=== PATIENT | female | born 1965 | race Caucasian/White ===

== ENCOUNTER 2023-03-03 10:32 | Emergency (ER) | payer SELFPAY ==
[~2023-03-03] VITALS: Ht 165.1 cm; Wt 65.0 kg
[2023-03-03] MEDS ORDERED: KETOROLAC 60MG/2ML VIAL IM STA (12:04)
[2023-03-03 12:42] LABS: BASOPHILS % 0.6 % (0.0-2.0); EOSINOPHILS % 1.8 % (0.0-5.0); HEMATOCRIT. 37.2 % (36.0-48.0); HEMOGLOBIN. 12.2 g/dL (12.0-16.0); LYMPHOCYTES % 33.2 % (20.0-50.0); MEAN CORPUSCULAR HEMOGLOBIN 27.1 pg (28.0-32.0); MEAN CORPUSCULAR VOLUME 82.8 fL (81.0-99.0); MEAN PLATELET VOLUME 8.4 fl (7.4-10.4); MONOCYTES % 4.8 % (2.0-8.0); NEUTROPHILS % 59.6 % (40.0-76.0); PLATELET 347 x1000/uL (130-400); RED BLOOD CELL COUNT 4.49 mill/uL (4.2-5.4); RED CELL DISTRIBUTION WIDTH 14.2 % (11.6-14.6)
[2023-03-03 12:53] LABS: CHLORIDE 108 mEq/L (98-107)
[2023-03-03 13:37] LABS: CLARITY URINE CLEAR (CLEAR); COLOR URINE YELLOW (YELLOW); KETONES URINE NEGATIVE (NEGATIVE); LEUKOCYTE ESTERASE URINE NEGATIVE (NEGATIVE); NITRITE URINE NEGATIVE (NEGATIVE); OCCULT BLOOD URINE NEGATIVE (NEGATIVE); PROTEIN URINE NEGATIVE (NEGATIVE); SPECIFIC GRAVITY URINE 1.022 (1.005-1.030); UROBILINOGEN URINE 0.2 E.U./dL (0.2-1.0)
[2023-03-03] MEDS ORDERED: NAPR-681 PO (13:53)
[2023-03-03] MEDS ORDERED: CYCL5TAB PO (13:53)
[2023-03-03 14:05] VITALS: BP 118/83
== END 2023-03-03 14:06 | disposition home or self-care (01) ==
LOC: ER 10:32
DX: M60.9 Myositis, unspecified (principal); I10 Essential (primary) hypertension
CPT/HCPCS: 36415; 80048; 81003; 85025; 96372; 99283; J1885

== ENCOUNTER 2024-12-14 10:25 | Emergency (ER) | payer MEDICAID ==
[~2024-12-14] VITALS: Ht 165.1 cm; Wt 61.2 kg
[~2024-12-14 10:25] MED LIST: CYCL5TAB3 PO; NAPR-681 PO
[2024-12-14 10:36] VITALS: TEMP 98.2; O2SAT 100
[2024-12-14 12:21] LABS: HCG SCREEN NEGATIVE
[2024-12-14 12:54] LABS: CLARITY URINE CLEAR (CLEAR); COLOR URINE YELLOW (YELLOW); GLUCOSE URINE NEGATIVE (NEGATIVE); KETONES URINE NEGATIVE (NEGATIVE); LEUKOCYTE ESTERASE URINE TRACE (NEGATIVE); NITRITE URINE NEGATIVE (NEGATIVE); OCCULT BLOOD URINE NEGATIVE (NEGATIVE); PROTEIN URINE NEGATIVE (NEGATIVE); SPECIFIC GRAVITY URINE 1.004 (1.005-1.030); UROBILINOGEN URINE 0.2 E.U./dL (0.2-1.0)
[2024-12-14 13:27] LABS: RBC URINE NONE SEEN /hpf (0-2); SQUAMOUS EPITHELIAL CELL URINE 1+ /lpf (RARE/1+); WBC URINE 0-2 /hpf (0-2)
[2024-12-14 13:28] LABS: BACTERIA URINE NONE SEEN
[2024-12-14] MEDS: IBUPROFEN 600MG TABLET PO ONE (14:30)
[2024-12-14] MEDS ORDERED: DEXT15SY3 PO (15:49)
[2024-12-14] MEDS ORDERED: IBUP-2029 MT (15:49)
[2024-12-14 15:58] VITALS: BP 122/58; PULSE 60; RESP 16; O2SAT 97
== END 2024-12-14 15:59 | disposition home or self-care (01) ==
LOC: ER 10:34
DX: J06.9 Acute upper respiratory infection, unspecified (principal); I10 Essential (primary) hypertension; E78.00 Pure hypercholesterolemia, unspecified
CPT/HCPCS: 36415; 81003; 82962; 84702; 84703; 99283

== ENCOUNTER 2025-05-25 09:13 | Emergency (ER) | payer MEDICAID ==
[~2025-05-25] VITALS: Ht 165.1 cm; Wt 73.0 kg
[~2025-05-25 09:13] MED LIST changes: +DEXT15SY3 PO; +IBUP-2029 MT
[2025-05-25 09:14] VITALS: TEMP 36.6; O2SAT 98
[2025-05-25] MEDS: ONDANSETRON 4MG ODT PO ONE (10:30)
[2025-05-25] MEDS: IBUPROFEN 400MG TABLET PO ONE (10:30)
[2025-05-25] MEDS: HYDROCODONE/ACETAMINOPHEN 5/325MG TABLET PO ONE (10:31)
[2025-05-25] MEDS ORDERED: TOPUD PO (11:14)
[2025-05-25] MEDS ORDERED: IBUP-2028 MT (11:14)
[2025-05-25 11:50] VITALS: BP 132/67; PULSE 87; RESP 16; O2SAT 99
== END 2025-05-25 11:51 | disposition home or self-care (01) ==
LOC: ER 09:13
DX: S93.402A Sprain of unspecified ligament of left ankle, initial encounter (principal); E78.00 Pure hypercholesterolemia, unspecified; I10 Essential (primary) hypertension; F32.A Depression, unspecified; Z79.899 Other long term (current) drug therapy; W01.0XXA Fall on same level from slipping, tripping and stumbling without subsequent striking against object, initial encounter; Y93.89 Activity, other specified; Y92.89 Other specified places as the place of occurrence of the external cause; Y99.8 Other external cause status
CPT/HCPCS: 99284; 71046; 73610; 73630; Q0162; A6449

== ENCOUNTER 2025-09-27 08:49 | Emergency (ER) | payer MEDICAID ==
[~2025-09-27] VITALS: Ht 162.6 cm; Wt 63.6 kg
[~2025-09-27 08:49] MED LIST changes: +IBUP-1455 MT; +IBUP-2028 MT; -IBUP-2029 MT; +TOPUD PO
[2025-09-27 09:03] VITALS: O2SAT 98
[2025-09-27 09:43] LABS: BASOPHILS % 0.5 % (0.0-2.0); EOSINOPHILS % 2.4 % (0.0-5.0); HEMATOCRIT. 36.9 % (36.0-48.0); HEMOGLOBIN. 12.2 g/dL (12.0-16.0); LYMPHOCYTES % 29.7 % (20.0-50.0); MEAN PLATELET VOLUME 8.6 fl (7.4-10.4); MONOCYTES % 7.2 % (2.0-8.0); NEUTROPHILS % 60.2 % (40.0-76.0); PLATELET 296 x1000/uL (130-400); RED BLOOD CELL COUNT 4.48 mill/uL (4.2-5.4); RED CELL DISTRIBUTION WIDTH 14.0 % (11.6-14.6)
[2025-09-27 09:52] LABS: CLARITY URINE CLEAR (CLEAR); COLOR URINE YELLOW (YELLOW); GLUCOSE URINE NEGATIVE (NEGATIVE); KETONES URINE NEGATIVE (NEGATIVE); LEUKOCYTE ESTERASE URINE NEGATIVE (NEGATIVE); NITRITE URINE NEGATIVE (NEGATIVE); OCCULT BLOOD URINE NEGATIVE (NEGATIVE); PH URINE 5.5 (4.5-8.0); PROTEIN URINE NEGATIVE (NEGATIVE); SPECIFIC GRAVITY URINE 1.010 (1.005-1.030); UROBILINOGEN URINE 0.2 E.U./dL (0.2-1.0)
[2025-09-27 10:13] LABS: CREATININE 0.7 mg/dL (0.6-1.0); UREA NITROGEN BLOOD 7 mg/dL (9-23)
[2025-09-27 10:15] LABS: INFLUENZA TYPE A Presumptive Negative (Pres. Neg.); INFLUENZA TYPE B Presumptive Negative (Pres. Neg.)
[2025-09-27 10:15] LABS: ASPARTATE AMINOTRANSFERASE 21 IU/L (<34); BILIRUBIN DIRECT < 0.1 mg/dL (<=3.0); BILIRUBIN TOTAL 0.3 mg/dL (0.1-1.0); PROTEIN TOTAL 6.8 g/dL (6.0-8.3)
[2025-09-27 10:41] LABS: MONOTEST NEGATIVE (NEGATIVE)
[2025-09-27] MEDS ORDERED: VORI200T3 MT (10:55)
[2025-09-27] MEDS: ACETAMINOPHEN 325MG TABLET PO ONE (11:21)
[2025-09-27] MEDS: POTASSIUM CHLORIDE 20MEQ TABLET SR PO ONE (11:21)
[2025-09-27 11:24] VITALS: BP 137/78; PULSE 69; RESP 18; TEMP 37.1; O2SAT 100
== END 2025-09-27 11:26 | disposition home or self-care (01) ==
LOC: ER 08:49
DX: B37.0 Candidal stomatitis (principal); E78.00 Pure hypercholesterolemia, unspecified; I10 Essential (primary) hypertension; Z98.890 Other specified postprocedural states; Z79.899 Other long term (current) drug therapy; Z20.822 Contact with and (suspected) exposure to COVID-19
CPT/HCPCS: 36415; 80048; 80076; 81003; 85025; 86308; 87070; 87426; 87430; 87804; 99283